=== PATIENT | female | born 1980 | race Caucasian/White ===

== ENCOUNTER 2018-05-21 11:06 | Day surgery (SDC) | payer OTHER ==
[~2018-05-21 11:06] MED LIST: METOCLOPRAMIDE 10 MG INJ
[2018-05-21] MEDS ORDERED: hydrALAzine 20 MG INJ IV (14:30)
[2018-05-21] MEDS ORDERED: DIPHENHYDRAMINE 50 MG INJ IV (14:30)
[2018-05-21] MEDS ORDERED: FENTAnyl 50 MCG/ML VIAL IV ×2 (14:30)
[2018-05-21] MEDS ORDERED: HYDROmorphONE 1 MG/5 ML IV SYRINGE IV ×2 (14:30)
[2018-05-21] MEDS ORDERED: MEPERIDINE 25 MG INJ IV (14:30)
[2018-05-21] MEDS ORDERED: ONDANSETRON 4 MG INJ IV (14:30)
[2018-05-21] MEDS ORDERED: LABETALOL HCL 20MG INJ IV (14:30)
[2018-05-21] MEDS ORDERED: LEVALBUTEROL (NEB) 0.63 MG/3 ML AMP HHN (14:30)
[2018-05-21] MEDS ORDERED: MIDAZOLAM 1 MG/ML 2 ML INJ (14:58)
[2018-05-21] MEDS ORDERED: FENTAnyl 50 MCG/ML VIAL (14:58)
[2018-05-21] MEDS ORDERED: ONDANSETRON 4 MG INJ (14:59)
[2018-05-21] MEDS ORDERED: CEFAZOLIN 1 GM INJ (14:59)
[2018-05-21] MEDS ORDERED: PROPOFOL 20 ML (14:59)
[2018-05-21] MEDS ORDERED: LIDOCAINE 2% (SDV) 5 ML INJ (14:59)
[2018-05-21] MEDS ORDERED: ACETAMINOPHEN 325 MG TAB PO (15:30)
[2018-05-23] MEDS ORDERED: INFLUENZA VIRUS VACCINE 0.5 ML (DISPENSING) IM* (10:00)
== END 2018-05-21 17:40 | disposition home or self-care (01) ==
LOC: SDS 11:06
DX: C54.1 Malignant neoplasm of endometrium (principal)
CPT/HCPCS: 58558; 84702; 84703; 86850; 86900; 86901; 88305

== ENCOUNTER 2018-12-11 19:23 | Inpatient (IN) | payer OTHER ==
[2018-12-11] MEDS: SODIUM CHLORIDE 0.9% 1L BAG IV* (20:21)
[2018-12-11 20:26] LABS: ADD MAN DIFF? NO
[2018-12-11 20:31] LABS: ABNORMAL IP MESSAGE 1; BASOPHIL # 0.1 10^3/ul (0.0-0.1); BASOPHILS % 0.7 % (0.0-2.0); EOSINOPHILS # 0.2 10^3/ul (0.0-0.5); EOSINOPHILS % 2.1 % (0.0-7.0); HEMATOCRIT 44.4 % (37.0-47.0); HEMOGLOBIN 13.8 g/dl (12.0-16.0); LYMPHOCYTES # 2.1 10^3/ul (0.8-2.9); LYMPHOCYTES % 21.3 % (15.0-51.0); MEAN CORPUSCULAR HGB CONC 31.1 g/dl (32.0-37.0); MEAN CORPUSCULAR VOLUME 83.8 fl (82.0-101.0); MEAN PLATELET VOLUME 10.3 fl (7.4-10.4); MONOCYTE # 0.7 10^3/ul (0.3-0.9); NEUTROPHIL # 6.9 10^3/ul (1.6-7.5); NEUTROPHILS % 68.5 % (39.0-77.0); PLATELET COUNT 245 10^3/UL (140-415); RED CELL DISTRIBUTION WIDTH 15.2 % (11.5-14.5)
[2018-12-11 20:44] LABS: ALANINE AMINOTRANSFERASE 65 IU/L (13-69); ALBUMIN 4.3 g/dl (3.3-4.9); ALBUMIN/GLOBULIN RATIO 1.13; ALKALINE PHOSPHATASE 87 IU/L (42-121); ANION GAP 10 (5-13); ASPARTATE AMINO TRANSFERASE 39 IU/L (15-46); BILIRUBIN,INDIRECT 0.2 mg/dl (0-1.1); BILIRUBIN,TOTAL 0.2 mg/dl (0.2-1.3); BLOOD UREA NITROGEN 7 mg/dl (7-20); CALCIUM 9.8 mg/dl (8.4-10.2); CARBON DIOXIDE 28 mmol/L (21-31); CHLORIDE 102 mmol/L (97-110); CREATININE 0.67 mg/dl (0.44-1.00); Estimated GFR > 60 mL/min (>60); GLUCOSE 119 mg/dl (70-220); LIPASE 60 U/L (23-300); SODIUM 140 mmol/L (135-144); TOTAL PROTEIN 8.1 g/dl (6.1-8.1)
[2018-12-11 20:46] LABS: POSITIVE DIFF @See below
[2018-12-11] MEDS: PIPER-TAZO 3.375 GM IV (PMX) 100 ML IVPB (20:52)
[2018-12-11] MEDS: HYDROCODONE/APAP (5/325) TAB PO (20:52)
[2018-12-11 21:06] LABS: ADD UMIC YES; UR ASCORBIC ACID NEGATIVE (NEGATIVE); UR BACTERIA FEW /HPF (NONE SEEN); UR BILIRUBIN (Dip) NEGATIVE (NEGATIVE); UR BLOOD (Dip) 2+ mg/dL (NEGATIVE); UR CLARITY TURBID (CLEAR); UR COLOR YELLOW (YELLOW); UR GLUCOSE (Dip) NEGATIVE (NEGATIVE); UR KETONES (Dip) NEGATIVE (NEGATIVE); UR LEUKOCYTE ESTERASE (Dip) 3+ Leu/ul (NEGATIVE); UR NITRITE (Dip) NEGATIVE (NEGATIVE); UR RBC 61 /HPF (0-5); UR SPECIFIC GRAVITY (Dip) 1.011 (1.003-1.030); UR TOTAL PROTEIN (Dip) 2+ mg/dl (NEGATIVE); UR UROBILINOGEN (Dip) NEGATIVE (NEGATIVE); UR WBC > 182 /HPF (0-5)
[2018-12-11 22:27] LABS: LACTIC ACID 0.8 mmol/L (0.5-2.0)
[2018-12-12] MEDS ORDERED: ACETAMINOPHEN 325 MG TAB PO ×2 (00:30→02:30)
[2018-12-12] MEDS ORDERED: ONDANSETRON 4 MG INJ IV ×2 (00:30→02:30)
[2018-12-12] MEDS ORDERED: METOCLOPRAMIDE 10 MG INJ IV (02:30)
[2018-12-12] MEDS ORDERED: HYDROCODONE/APAP (5/325) TAB PO ×2 (02:30)
[2018-12-12] MEDS ORDERED: NACL 0.9% 3 ML SYG IV (02:30)
[2018-12-12 02:56] LABS: LACTIC ACID 1.3 mmol/L (0.5-2.0)
[2018-12-12] MEDS: SOD CHLORIDE 0.9% 1,000 ML IV ×3 (03:01→23:00)
[2018-12-12 05:00] LABS: ADD MAN DIFF? NO
[2018-12-12 05:03] LABS: BASOPHIL # 0.1 10^3/ul (0.0-0.1); BASOPHILS % 0.6 % (0.0-2.0); EOSINOPHILS # 0.2 10^3/ul (0.0-0.5); EOSINOPHILS % 2.9 % (0.0-7.0); HEMATOCRIT 40.3 % (37.0-47.0); HEMOGLOBIN 12.6 g/dl (12.0-16.0); LYMPHOCYTES # 2.8 10^3/ul (0.8-2.9); LYMPHOCYTES % 34.3 % (15.0-51.0); MEAN CORPUSCULAR HEMOGLOBIN 26.1 pg (29.0-33.0); MEAN CORPUSCULAR HGB CONC 31.3 g/dl (32.0-37.0); MEAN CORPUSCULAR VOLUME 83.6 fl (82.0-101.0); MEAN PLATELET VOLUME 10.6 fl (7.4-10.4); MONOCYTE # 0.8 10^3/ul (0.3-0.9); MONOCYTES % 10.5 % (0.0-11.0); NEUTROPHIL # 4.1 10^3/ul (1.6-7.5); NEUTROPHILS % 51.5 % (39.0-77.0); PLATELET COUNT 197 10^3/UL (140-415); RED BLOOD COUNT 4.82 10^6/ul (4.20-5.40); RED CELL DISTRIBUTION WIDTH 15.3 % (11.5-14.5)
[2018-12-12 05:23] LABS: ALANINE AMINOTRANSFERASE 48 IU/L (13-69); ALBUMIN 3.7 g/dl (3.3-4.9); ALBUMIN/GLOBULIN RATIO 1.27; ALKALINE PHOSPHATASE 67 IU/L (42-121); ANION GAP 8 (5-13); ASPARTATE AMINO TRANSFERASE 28 IU/L (15-46); BILIRUBIN,INDIRECT 0.2 mg/dl (0-1.1); BILIRUBIN,TOTAL 0.2 mg/dl (0.2-1.3); BLOOD UREA NITROGEN 6 mg/dl (7-20); CALCIUM 9.3 mg/dl (8.4-10.2); CARBON DIOXIDE 28 mmol/L (21-31); CHLORIDE 107 mmol/L (97-110); CREATININE 0.57 mg/dl (0.44-1.00); Estimated GFR > 60 mL/min (>60); GLUCOSE 102 mg/dl (70-220); POTASSIUM 3.8 mmol/L (3.5-5.1); SODIUM 143 mmol/L (135-144); TOTAL PROTEIN 6.6 g/dl (6.1-8.1)
[2018-12-12] MEDS: CEFTRIAXONE 1 GM/50 ML (PMX) 50 ML IVPB (09:11)
[2018-12-12] MEDS: LOSARTAN 50 MG TAB PO (09:13)
[2018-12-12] MEDS: ENOXAPARIN 40 MG/0.4 ML SYG SC (09:15)
[2018-12-13 04:54] LABS: ADD MAN DIFF? NO
[2018-12-13 05:03] LABS: WHITE BLOOD COUNT 7.4 10^3/ul (4.8-10.8)
[2018-12-13 05:03] LABS: BASOPHIL # 0.1 10^3/ul (0.0-0.1); BASOPHILS % 0.7 % (0.0-2.0); EOSINOPHILS # 0.2 10^3/ul (0.0-0.5); HEMATOCRIT 41.9 % (37.0-47.0); HEMOGLOBIN 12.8 g/dl (12.0-16.0); LYMPHOCYTES # 2.5 10^3/ul (0.8-2.9); LYMPHOCYTES % 33.7 % (15.0-51.0); MEAN CORPUSCULAR HGB CONC 30.5 g/dl (32.0-37.0); MEAN CORPUSCULAR VOLUME 85.2 fl (82.0-101.0); MEAN PLATELET VOLUME 10.4 fl (7.4-10.4); MONOCYTE # 0.9 10^3/ul (0.3-0.9); MONOCYTES % 12.2 % (0.0-11.0); NEUTROPHIL # 3.7 10^3/ul (1.6-7.5); NEUTROPHILS % 50.1 % (39.0-77.0); PLATELET COUNT 226 10^3/UL (140-415); RED BLOOD COUNT 4.92 10^6/ul (4.20-5.40); RED CELL DISTRIBUTION WIDTH 15.2 % (11.5-14.5)
[2018-12-13 05:22] LABS: ANION GAP 6 (5-13); BLOOD UREA NITROGEN 8 mg/dl (7-20); CALCIUM 9.4 mg/dl (8.4-10.2); CARBON DIOXIDE 29 mmol/L (21-31); CHLORIDE 105 mmol/L (97-110); CREATININE 0.67 mg/dl (0.44-1.00); Estimated GFR > 60 mL/min (>60); GLUCOSE 124 mg/dl (70-220); PHOSPHORUS 4.7 mg/dl (2.5-4.9); POTASSIUM 4.4 mmol/L (3.5-5.1); SODIUM 140 mmol/L (135-144)
[2018-12-13 06:12] LABS: HEMOGLOBIN A1C 6.6 % (0-5.9)
[2018-12-13] MEDS: LOSARTAN 50 MG TAB PO (08:20)
[2018-12-13] MEDS: CEFTRIAXONE 1 GM/50 ML (PMX) 50 ML IVPB (08:20)
[2018-12-13] MEDS: ENOXAPARIN 40 MG/0.4 ML SYG SC (08:24)
[2018-12-13] MEDS: CIPROFLOXACIN 500 MG TAB PO (17:11)
== END 2018-12-13 18:31 | disposition home or self-care (01) | DRG 690 ==
LOC: E/R 19:23 → MS1 12-12 00:06
DX: N10 Acute pyelonephritis (principal); B96.20 Unspecified Escherichia coli [E. coli] as the cause of diseases classified elsewhere; I10 Essential (primary) hypertension; E11.9 Type 2 diabetes mellitus without complications; C55 Malignant neoplasm of uterus, part unspecified; Z79.84 Long term (current) use of oral hypoglycemic drugs; Z90.710 Acquired absence of both cervix and uterus
CPT/HCPCS: 36415; 71045; 74176; 80048; 80053; 81001; 83036; 83605; 83690; 83735; 84100; 85025; 87040-91; 87086; 96374; 99285-25